=== PATIENT | male | born 1955 | race Caucasian/White ===

== ENCOUNTER → 2019-05-13 07:46 | Outpatient (CLI) | payer OTHER, SELFPAY ==
--- NOTE | 2019-05-13 | DI.RAD.S_ITS ---
PROCEDURE: FL SHOULDER INJECTION MR/CT RT INDICATIONS: Strain of muscle(s) and tendon(s) of the rotator c TECHNIQUE: The indications, alternatives, benefits, risks, and complications of the procedure were explained to the patient. Written informed consent was obtained and placed in the chart. The shoulder was examined fluoroscopically and a site for needle placement chosen for entry into the glenohumeral joint from an anterior approach. The skin was prepped and draped in a sterile fashion, and 1% lidocaine infiltrated from skin down to joint capsule. A spinal needle was inserted into the glenohumeral joint, and a small amount of iodinated contrast media injected to confirm intra-articular placement of the needle tip. This was followed by approximately 12 mL dilute solution of a gadolinium containing MR contrast agent. The needle was removed and a dressing was applied. The patient was given postprocedural instructions and sent to the MR suite for MR imaging. FINDINGS: A single fluoroscopic spot image demonstrates intra-articular location of injected iodinated contrast. IMPRESSION: Successful fluoroscopically guided administration of dilute Gadolinium solution into the shoulder joint for MR arthrogram. Dictated by: Dax Chan M.D. on 05/13/2019 at 8:59 Approved by: Dax Chan M.D. on 05/13/2019 at 9:49
--- NOTE | 2019-05-13 | DI.MRI.S_ITS ---
PROCEDURE: MR SHOULDER RT W CON INDICATIONS: Strain of muscle(s) and tendon(s) of the rotator c TECHNIQUE: After the administration of 12 mL of dilute intra-articular Gadolinium contrast, oblique coronal T1 and T2 spin echo with fat saturation, oblique sagittal T1 spin echo with and without fat saturation, oblique sagittal T2 fast spin echo with fat saturation, axial T1 spin echo with fat saturation through the shoulder. COMPARISON: None. FINDINGS: Image quality: Excellent. Rotator cuff: Massive full-thickness tear involving the infraspinatus, supraspinatus tendons. Teres minor tendon appears intact. High-grade partial-thickness articular sided tear of the subscapularis tendon. There is severe atrophy of the subscapularis, and supraspinatus muscles. Mild atrophy of the infraspinatus muscle. Diffuse fat infiltration of the supraspinatus and infraspinatus muscles. Bones and bursae: No bone marrow contusions or fractures. Postsurgical widening of the acromioclavicular joint. Glenohumeral degenerative joint disease Acromion demonstrates conventional anatomy, without an os acromiale. Capsule and soft tissues: Ill-defined probably chronic degeneration/fraying of the superior labrum. There is also posterior labral tear versus advanced degeneration. Slight posterior subluxation of the humeral head relative to the glenoid, and segmental sclerosis and spurring at the adjacent posterior glenoid rim. Severe long head biceps tendinopathy, partial rupture, and medial subluxation. The rotator interval appears normal, without fibrosis. Coracohumeral ligament intact. IMPRESSION: Massive full-thickness tear involving the supraspinatus and infraspinatus tendons. High-grade partial-thickness articular sided tear of the subscapularis tendon. Atrophy of the subscapularis, supraspinatus and infraspinatus muscles. Moderate degenerative joint disease Posterior labral tear versus advanced degeneration, chronic finding. Mild associated posterior subluxation of the humeral head relative to the glenoid suggesting microinstability Chronic superior labral degeneration/fraying. Medial subluxation of the long head biceps tendon also demonstrating severe tendinopathy and partial tear. Dictated by: Xander Dye M.D. on 05/13/2019 at 10:20 Approved by: Xander Dye M.D. on 05/13/2019 at 10:43
== END ==
PROVIDERS: PCP Family Medicine; Visit Provider Family Medicine
DX: S46.011A Strain of muscle(s) and tendon(s) of the rotator cuff of right shoulder, initial encounter (principal); S46.111A Strain of muscle, fascia and tendon of long head of biceps, right arm, initial encounter; M19.011 Primary osteoarthritis, right shoulder; X58.XXXA Exposure to other specified factors, initial encounter
CPT/HCPCS: 23350; 73222; 77002